=== PATIENT | female | born 1950 | race Two or more races ===

== ENCOUNTER 2019-05-01 05:17 | Day surgery (SDC) | payer BC ==
[~2019-05-01 05:17] MED LIST: BENZ-13 PO; BUPR-51 PO; CHOL100044 PO; DILT180C49 PO; DIPH25CA51 PO; ICOS1CAP PO; IPRA3AMP23 IH; LOSA100T31 PO; META-25 PO; MOME13HF IH; MONT10TA22 PO; MULT-1160 PO; NAPR-1009 PO; OXYC-454 PO; PRED20TA PO; RISE150T PO; RIVA10TA PO; THEO300C4 PO; THEO400C PO; TUDORZA PRESSAIR IH
[2019-05-01] MEDS ORDERED: ROCURONIUM BROMIDE 50 MG/5 ML ONE (06:39)
[2019-05-01] MEDS ORDERED: HYDROMORPHONE INJ 2 MG/ML DISP.SYRIN ONE (06:39)
[2019-05-01] MEDS ORDERED: ANESTHESIA TRAY IN PYXIS 1 EA TRAY MC ONE (06:39)
[2019-05-01] MEDS ORDERED: LIDOCAINE HCL/MPF 1% 30 ML VIAL IJ ONE (06:45)
[2019-05-01] MEDS ORDERED: EPINEPHRINE (1:1000) 1 MG/ML AMPUL ONE (06:45)
[2019-05-01] MEDS ORDERED: methylPREDNISolone ACETATE 80 MG/ML VIAL ONE (06:46)
[2019-05-01] MEDS ORDERED: FENTANYL PF 100MCG/2ML AMPUL ONE (08:23)
[2019-05-01 08:45] VITALS: BP 121/62
[2019-05-01] MEDS ORDERED: oxyCODONE HCL SR 10MG TAB.SR.12H PO ONE (08:45)
[2019-05-01 09:00] VITALS: BP 140/58
[2019-05-01 09:15] VITALS: BP 136/68
[2019-05-01 09:30] VITALS: BP 129/71
== END 2019-05-01 16:00 | disposition home or self-care (01) ==
LOC: DS 05:17 → MED 05:36 → UNDOADMIN 05:36 → UNDODISIN 11:00 → DS 16:00
PROVIDERS: ATTEND Specialist
DX: M75.42 Impingement syndrome of left shoulder (principal); M65.862 Other synovitis and tenosynovitis, left lower leg; M94.262 Chondromalacia, left knee; J44.9 Chronic obstructive pulmonary disease, unspecified; I10 Essential (primary) hypertension; K21.9 Gastro-esophageal reflux disease without esophagitis; Z79.899 Other long term (current) drug therapy
CPT/HCPCS: 36415; 86850-TC; 87081-TC; 88304-TC; 88311-TC; A4217; A4565; C1713; G0378; J0171; J0690; J1040; J1100; J1170; J2405; J2704; J2710; J3010; J3490